=== PATIENT | male | born 1950 | race Caucasian/White ===

== ENCOUNTER 2024-08-22 15:31 | Outpatient (CLI) | payer MEDICARE, BC | END 2024-08-22 15:32 | disposition home or self-care (01) | LOC: CSHMRI 15:31 | PROVIDERS: ATTEND Orthopaedic Surgery | DX: M19.012 Primary osteoarthritis, left shoulder (principal); M24.012 Loose body in left shoulder; M94.8X1 Other specified disorders of cartilage, shoulder ==